=== PATIENT | female | born 1985 | race Caucasian/White ===

== ENCOUNTER 2024-08-10 15:06 | Outpatient (REF) | payer SELFPAY ==
--- NOTE | ~2024-08-10 | XR_ITS ---
EXAMINATION: XR CHEST CLINICAL INFORMATION: pre op clearance COMPARISON: None available. TECHNIQUE: 2 views of the chest were obtained. FINDINGS: The cardiac, hilar, and mediastinal contours are normal. The lungs are clear bilaterally. There is no pneumothorax or pleural effusion. There is no focal osseous or soft tissue abnormality. XR/XR chest 2V IMPRESSION: Normal chest. Electronically signed by: Case Hernandez MD 08/10/2024 04:57 PM EDT
--- NOTE | ~2024-08-10 | MM_ITS ---
EXAMINATION: MM SCREENING DIGITAL BREAST TOMOSYNTHESIS, BILATERAL CLINICAL INFORMATION: Screening. Asymptomatic. COMPARISON: Mammography: Comparison is made with relevant avialable priors. TECHNIQUE: Digital mammography is performed in craniocaudal and mediolateral oblique views along with computer-aided detection (CAD). Digital breast tomosynthesis is performed in implant-displaced craniocaudal and implant-displaced mediolateral oblique views along with computer-aided detection (CAD). FINDINGS: The breasts are heterogeneously dense, which may obscure small masses (ACR BI-RADS breast composition Category c). Bilateral retropectoral silicone implants are stable appearing. There are no significant masses, abnormal calcifications, or other abnormalities. MM/MM tomosynthesis screen imp BI IMPRESSION: No mammographic evidence of malignancy. ASSESSMENT: BI-RADS BI-RADS 2 - Benign Findings RECOMMENDATION: Routine annual mammography screening. 1 year F/U This patient's information was entered into a reminder system with a target due date for their next mammogram. Electronically signed by: Stacy Diaz DO 08/17/2024 03:24 PM EDT
[2024-08-10 16:31] LABS: MANUAL DIFF FLAG NO
[2024-08-10 17:10] LABS: Basophils Percent Auto 0.5 % (0-2); Eosinophils Absolute Auto 0.1 X10*3/uL (0.0-0.4); Hematocrit 41.1 % (37.0-47.0); Hemoglobin 14.2 g/dl (12.0-16.0); Imm Gran Abs Auto 0.03 X10*3/uL (0.00-0.03); Imm Gran Pct Auto 0.4 % (0.0-0.4); Lymphocytes Absolute Auto 1.8 X10*3/uL (1.2-4.9); Lymphocytes Percent Auto 23.9 % (20-40); Mean Corpuscular HGB Conc 34.5 g/dl (31.0-35.0); Mean Corpuscular Hemoglobin 29.3 pg (27.0-33.0); Mean Corpuscular Volume 84.9 fL (80.0-98.0); Mean Platelet Volume 10.8 fL (9.4-12.3); Monocytes Absolute Auto 0.7 X10*3/uL (0.1-1.2); Neutrophils Absolute Auto 4.8 x10*3/uL (2.0-8.3); Neutrophils Percent Auto 65.2 % (45-73); Platelet Count 268 X10*3/uL (160-400); Red Blood Count 4.84 X10*6/uL (4.20-5.50); Red Cell Distribution Width 13.2 % (11.0-16.0); White Blood Count 7.3 X10*3/uL (4.8-10.8)
[2024-08-10 17:16] LABS: Prothrombin Time 11.9 SEC (10.9-12.4)
[2024-08-10 17:18] LABS: Partial Thromboplastin Time 30.1 SEC (26.0-36.8)
[2024-08-10 19:10] LABS: Alkaline Phosphatase 107 U/L (39-117)
[2024-08-10 19:54] LABS: Anion Gap 11 (12-20)
[2024-08-10 19:58] LABS: Alanine Aminotransferase 25 U/L (0-31); Albumin Level 4.3 g/dL (3.5-5.0); Aspartate Amino Transferase 30 U/L (5-31); Bilirubin Total 0.9 mg/dL (0.0-1.0); Blood Urea Nitrogen 11 mg/dL (9-16); Calcium 9.5 mg/dL (8.4-10.2); Carbon Dioxide 27 mmol/L (22-29); Chloride 105 mmol/L (96-108); Estimated Glomerular Filt Rate > 60; Glucose Random 79 mg/dL (60-115); Potassium 3.9 mmol/L (3.3-5.1); Sodium 139 mmol/L (135-145)
[2024-08-10 20:07] LABS: HCG Quantitative < 2 mIU/mL
[2024-08-11 04:15] LABS: HIV AB/AG Nonreactive (Nonreactive); HIV Num 1 0.06 S/CO (0.00-0.99)
== END 2024-08-10 15:07 | disposition home or self-care (01) ==
LOC: HO.MAMMO 15:06
PROVIDERS: Otolaryngology; PCP Internal Medicine; Visit Provider Internal Medicine
DX: Z01.812 Encounter for preprocedural laboratory examination (principal)
CPT/HCPCS: 36415; 71046; 77063; 77067; 80053; 84702; 85025; 85610; 85730; 87389

== ENCOUNTER → 2024-08-10 16:40 | Outpatient (BNV) | payer SELFPAY | PROVIDERS: PCP Internal Medicine; Visit Provider Radiology Diagnostic Radiology | DX: Z01.810 Encounter for preprocedural cardiovascular examination (principal) | CPT/HCPCS: 71046 ==

== ENCOUNTER → 2024-08-16 09:16 | Outpatient (REF) | payer SELFPAY ==
--- NOTE | 2024-08-16 09:29 | ECG_ITS ---
Test Reason : preop Blood Pressure : */* mmHG Vent. Rate : 53 BPM Atrial Rate : 53 BPM P-R Int : 148 ms QRS Dur : 80 ms QT Int : 436 ms P-R-T Axes : 3 51 54 degrees QTcB Int : 409 ms Sinus bradycardia Otherwise normal ECG When compared with ECG of 10-May-2010 18:03, Vent. rate has decreased by 26 bpm Nonspecific T wave abnormality no longer evident in Inferior leads Referred By: Jaden Quinteros Electronically Signed By: YG FREIRE MD
== END ==
LOC: HO.CARD 09:16
PROVIDERS: PCP Internal Medicine; Visit Provider Otolaryngology
DX: Z01.812 Encounter for preprocedural laboratory examination (principal)
CPT/HCPCS: 93005

== ENCOUNTER → 2024-08-16 09:29 | Outpatient (BNV) | payer SELFPAY | PROVIDERS: PCP Internal Medicine; Visit Provider Internal Medicine Cardiovascular Disease | DX: R00.1 Bradycardia, unspecified (principal) | CPT/HCPCS: 93010 ==